=== PATIENT | male | born 1980 | race Caucasian/White ===

== ENCOUNTER 2022-11-04 08:53 | Outpatient (CLI) | payer OTHER, SELFPAY ==
[2022-11-04 10:09] LABS: Hematocrit 44.5 % (42.0-52.0); Mean Corpuscular HGB Conc 33.7 g/dl (32-36); Mean Corpuscular Hemoglobin 31.6 pg (26-34); Mean Corpuscular Volume 93.9 fl (80-100); Platelet Count Result 323 k/mm3 (150-375); Red Blood Count 4.74 M/mm3 (4.6-6.20); Red Cell Distribution Width 12.3 % (11.5-14.5); White Blood Count 4.7 K/mm3 (4.5-10.0)
[2022-11-04 10:10] LABS: Appearance Urine Clear (Clear); Bilirubin Urine Negative (Negative); Blood Urine Negative (Negative); Color Urine Yellow (Yellow); Glucose Urine UA Negative (Negative); Ketones Urine Negative (Negative); Leukocyte Esterase Ur Negative LEU/UL (Negative); Nitrate Urine Negative (Negative); Protein Urine Negative (Negative); Specific Grav Ur 1.021 (1.001-1.035)
[2022-11-04 10:14] LABS: Add Urine Microscopic? NO
[2022-11-04 10:17] LABS: Partial Thromboplastin Time 30.4 SECONDS (22.3-36.8); Prothrombin Time 13.8 Seconds (11.1-14.7)
[2022-11-04 10:19] LABS: Anion Gap 6 mmol/L (8-16); Blood Urea Nitrogen 8 mg/dL (9-20); Calcium 8.5 mg/dL (8.4-10.2); Carbon Dioxide 30 mmol/L (22-30); Chloride 103 mmol/L (98-107); Estimated Glomerular Filt Rate > 60; Glucose 93 mg/dL (65-110); Sodium 139 mmol/L (137-145)
--- NOTE | 2022-11-04 10:30 | ECG_ITS ---
Measurements Intervals [place] Rate: 63 P: 20 [place]: 130 QRS: 4 QRSD: 128 T: 1 QT: 408 QTc: 419 Interpretive Statements SINUS RHYTHM INTRAVENTRICULAR CONDUCTION DELAY BASELINE ARTIFACT- I, II, AVR, AVL, AVF BORDERLINE ECG NO PREVIOUS ECG AVAILABLE FOR COMPARISON Electronically Signed On 11-04-2022 12:26:26 CDT by David Bañuelos D.O.
== END 2022-11-04 08:54 | disposition home or self-care (01) ==
LOC: ANHSURGERY 08:57
PROVIDERS: Visit Provider Neurological Surgery
DX: Z45.42 Encounter for adjustment and management of neurostimulator (principal)
CPT/HCPCS: 36415; 80048; 81003; 85027; 85610; 85730; 93005

== ENCOUNTER 2023-04-19 02:42 | Day surgery (SDC) | payer OTHER, SELFPAY ==
[2023-04-12 11:37] VITALS: BMI 28.2
--- NOTE | 2023-04-12 11:38 | PC.NURSE ---
Report to the Outpatient Waiting Room, entrance under the green pavilion located off [facility], at time 11:00 on date 04/19/23. Planned Procedure Time: 1:00. Time changes happen often and if your time is changed the preop area will call you the afternoon before. - You and your visitor will be asked to self-screen and do not enter if you have any COVID symptoms. - A mask is optional within the hospital at this time. Patients may have clear liquids (water, carbonated beverages, clear teas, apple juice) until 3 hours prior to surgery (10:00) with a maximum of 20 ounces. - No food from midnight until time of surgery Take the following medications with a SIP of water the morning of surgery: N/A DO NOT STOP ANY OF YOUR OTHER PRESCRIPTION MEDICATIONS PRIOR TO SURGERY ?EXCEPT THE FOLLOWING Medications to discontinue per physician: N/A Date to take last dose: N/A Please no make-up, nail sammarinese, hairspray, perfume, deodorant, or body powder the day of surgery. No jewelry (including any body piercings) or valuables the day of surgery, leave them at home. Please take a shower or bath the night before, or the morning of, surgery with an antibacterial soap. Wear comfortable, loose fitting clothing. - Jewelry must be removed prior to entering the operating room. Rings and piercings that are not removed may be cut off. - The hospital will not accept responsibility for valuables. - Please leave all valuables, including medications, at home the day of surgery. If you are going home after surgery, a licensed corporate driver must drive you home. - NO public transportation without another adult if you receive anesthesia. - We recommend that an adult stay with you for 24 hours following discharge. - We also recommend that you do not drive, make important decision, drink alcoholic beverages, or take any drugs that were not prescribed by your health care provider for at least 24 hours after your discharge time. Follow any additional instructions given to you from your surgeon. If you or anyone in your household have experienced Covid symptoms in the past week, please notify your surgeon or the nurse liaison at the phone number below for possible testing. Telephone instructions given to PT - ABILIO BECK and asked if any additional questions and then verbalized understanding. Patient advised to call surgeon office or pre surgery nurse liaison [phone] if any additional questions.
[2023-04-19 09:05] LABS: Hemoglobin 15.1 g/dL (14.0-18.0)
[2023-04-19 09:19] VITALS: BP 128/83; PULSE 66; RESP 14; TEMP 36.6; O2SAT 100
[2023-04-19] MEDS: LACTATED RINGERS 1,000 ML 30 ML IV CONT (10:00)
--- NOTE | 2023-04-19 10:11 | WPDANESEPPF ---
Anes - Initial Pre Proc Eval Procedure: Operation Date: 04/19/23 10:00 Proposed Procedures p Replacement of Left Anterior Chest Supraorbital Stimulator Generator - Audra Tinajero MD Date/Time: 04/19/23 10:11 Surgeon: Audra Tinajero MD Pre Op Diagnosis: eoi, supraorbital nerve stimulator Patient Data Age: 42 Gender: M Height: 1.88 m Weight: 96.8 kg Last Vital Signs Temp 36.6 C 04/19/23 09:19 Pulse 66 04/19/23 09:19 Resp 14 04/19/23 09:19 BP 128/83 04/19/23 09:19 Pulse Ox 100 04/19/23 09:19 O2 Del Method Room Air 04/19/23 09:19 Allergies Allergy/AdvReac Type Severity Reaction Status Date / Time No Known Allergies Allergy Verified 04/19/23 09:24 Home Medications Medication Instructions Recorded Confirmed Type No Home Medications 09/29/22 04/12/23 History Laboratory Tests 04/19/23 08:52 Hgb 15.1 g/dL (14.0-18.0) Hct 46.0 % (42.0-52.0) Patient hx anesthesia problems: none Family hx anesthesia problems: none Results Review: All pre-operative results and documents have been reviewed as part of the pre-operative evaluation. [facility] Social History Social History Smoking status: Never smoker Alcohol intake: current Drinks per week: 3 Substance use: never Substance use type: does not use Living arrangements: with family Spiritual care concerns: No Anes - Eval Final PreProcedure Day of Procedure 04/19/23 10:11 Patient weight: overweight Heart: regular rate and rhythm Lungs: clear to auscultation Airway: Mallampati scale class 1 Neurological: alert and oriented Last oral intake: >/= 8 hours ASA classification: II Emergent: no Anesthetic plan: proceed Anesthesia type and monitoring: general GIVS and standard monitoring Results Review: All pre-operative results and documents have been reviewed as part of the pre-operative evaluation. Informed Consent: The patient's anesthetic plan and its attendant risks and benefits were discussed with the patient/family/POA. Questions were solicited and answers provided to the satisfaction of the patient/family/POA.
--- NOTE | 2023-04-19 12:35 | P.HP_ITS ---
H&P: HPI History of Present Illness Date/Time: 04/19/23 12:35 Chief Complaint: battery end of life Narrative: Mr. 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 In 2011, the patient sustained a work related injury in which the flag of a fire hydrant hit him above the left eye resulting in significant pain and paresthesias in the region as well as migraines.? He had a number of treatments for this at [facility] including a supraorbital nerve block and at least two cryoneurolysis procedures followed by a nerve stimulator placement with the battery in the left anterior chest.? This has worked very well in terms of controlling his migraines and supraorbital region pain; however, he feels like the stimulator is not working as well as it should be and that the batteries most likely feeling.? According to the [employer] rep, it does appear that the battery is ready for replacement. [facility] Social History Social History Smoking status: Never smoker Alcohol intake: current Drinks per week: 3 Substance use: never Substance use type: does not use Living arrangements: with family Spiritual care concerns: No Meds Home Medications and Allergies Home Medications Medication Instructions Recorded Confirmed Type No Home Medications 09/29/22 04/12/23 History Allergies Allergy/AdvReac Type Severity Reaction Status Date / Time No Known Allergies Allergy Verified 04/19/23 09:24 Vital Signs Vital Signs - 24 hr 04/19/23 09:19 Temperature 98 F Pulse Rate 66 Respiratory Rate 14 Blood Pressure 128/83 Pulse Oximetry 100 Oxygen Delivery Room Air Exam Narrative: Left anterior chest incision is well healed Unless otherwise stated above, the patient's physical exam is as follows: General: -Well developed and well nourished. No a cute distress. Cooperative with exam. Mental status: -Awake and oriented to person, place, an d time. Integumentary: -No obvious skin lesions or masses Motor: -Muscle tone normal without spasticity o f flaccidity. No atrophy. No fasciculations. -No pronator drift -Right upper extremity: deltoid 5/5, bic eps 5/5, triceps 5/5, wrist extensors 5/5, wrist flexors 5/5, intrinsics 5/5 -Left upper extremity: deltoid 5/5, lucinda ps 5/5, triceps 5/5, wrist extensors 5/5, wrist flexors 5/5, intrinsics 5/5 -Right lower extremity: iliopsoas 5/5, q uadriceps 5/5, hamstrings 5/5, tibialis anterior 5/5, gastroc-soleus 5/5, EHL 5/5 -Left lower extremity: iliopsoas 5/5, qu adriceps 5/5, hamstrings 5/5, tibialis anterior 5/5, gastroc-soleus 5/5, EHL 5/5 Sensory: -Intact to light touch throughout -Normal proprioception throughout Reflexes: -1-2+
--- NOTE | 2023-04-19 12:35 | PM.IMHP ---
H&P: HPI History of Present Illness Date/Time: 04/19/23 12:35 Chief Complaint: battery end of life Narrative: Mr. 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 In 2011, the patient sustained a work related injury in which the flag of a fire hydrant hit him above the left eye resulting in significant pain and paresthesias in the region as well as migraines.? He had a number of treatments for this at [facility] including a supraorbital nerve block and at least two cryoneurolysis procedures followed by a nerve stimulator placement with the battery in the left anterior chest.? This has worked very well in terms of controlling his migraines and supraorbital region pain; however, he feels like the stimulator is not working as well as it should be and that the batteries most likely feeling.? According to the [employer] rep, it does appear that the battery is ready for replacement. [facility] Social History Social History Smoking status: Never smoker Alcohol intake: current Drinks per week: 3 Substance use: never Substance use type: does not use Living arrangements: with family Spiritual care concerns: No Meds Home Medications and Allergies Home Medications Medication Instructions Recorded Confirmed Type No Home Medications 09/29/22 04/12/23 History Allergies Allergy/AdvReac Type Severity Reaction Status Date / Time No Known Allergies Allergy Verified 04/19/23 09:24 Vital Signs Vital Signs - 24 hr 04/19/23 09:19 Temperature 98 F Pulse Rate 66 Respiratory Rate 14 Blood Pressure 128/83 Pulse Oximetry 100 Oxygen Delivery Room Air Exam Narrative: Left anterior chest incision is well healed Unless otherwise stated above, the patient's physical exam is as follows: General: -Well developed and well nourished. No acute distress. Cooperative with exam. Mental status: -Awake and oriented to person, place, and time. Integumentary: -No obvious skin lesions or masses Motor: -Muscle tone normal without spasticity of flaccidity. No atrophy. No fasciculations. -No pronator drift -Right upper extremity: deltoid 5/5, biceps 5/5, triceps 5/5, wrist extensors 5/5, wrist flexors 5/5, intrinsics 5/5 -Left upper extremity: deltoid 5/5, biceps 5/5, triceps 5/5, wrist extensors 5/5, wrist flexors 5/5, intrinsics 5/5 -Right lower extremity: iliopsoas 5/5, quadriceps 5/5, hamstrings 5/5, tibialis anterior 5/5, gastroc-soleus 5/5, EHL 5/5 -Left lower extremity: iliopsoas 5/5, quadriceps 5/5, hamstrings 5/5, tibialis anterior 5/5, gastroc-soleus 5/5, EHL 5/5 Sensory: -Intact to light touch throughout -Normal proprioception throughout Reflexes: -1-2+ DTR's throughout -No Alvarado's, clonus, or Babinski bilaterally H&P: Results Labs Labs: Short CBC 04/19/23 Range/Units 08:52 Hgb 15.1 (14.0-18.0) g/dL Hct 46.0 (42.0-52.0) % Assessment and Plan Assessment and plan (1) Battery end of life of vagus nerve stimulator: Code(s): Z45.42 - Encounter for adjustment and management of neurostimulator Status: Acute Plan Mr. Giordano? is a 42-year-old male with history of left supraorbital neuralgia status post stimulator placement in 2013 at [facility] who presents with battery end of life.? He has a left anterior chest battery with leads running into the left supraorbital region.? According to the [employer] rep, interrogation shows that the battery is ready for replacement.? I explained to him that I am not very familiar with this specific type of stimulator, and while I am happy to replace the battery, I would not be comfortable revising the stimulator in any way.? If this were necessary, I would likely refer him to [facility] for evaluation of this.? The patient expressed understandi
--- NOTE | 2023-04-19 12:36 | WPDHPUPDATE1 ---
History and Physical Update Update Date/Time: 04/19/23 12:36 History and Physical has been reviewed, including an updated exam of the patient. There are NO changes in the patient's condition. Risks, benefits, and alternatives have been discussed and questions answered. Patient agrees to proceed with procedure.
[2023-04-19] MEDS: ceFAZolin 2 GM/D5W 50 ML 2 GM/50 ML BAG IVPB (12:47)
[2023-04-19] MEDS: BUPIVACAINE/EPINEPHRINE 0.5% 50 ML VIAL 20 ML INFILTRATE (13:16)
[2023-04-19] MEDS: VANCOMYCIN HCL 1,000 MG VIAL 500 MG TOPICAL (13:19)
[2023-04-19 13:32] VITALS: BP 108/75; PULSE 58; RESP 13; TEMP 36.6; O2SAT 100
--- NOTE | 2023-04-19 13:34 | PM.OP ---
Procedure Note - Brief Procedure Note - Brief Date of procedure: 04/19/23 battery end of life of supraorbital nerve stimulator Post-op diagnosis: Same Procedure performed: Replacement of left anterior chest generator Surgeon: Audra Tinajero MD Anesthesia: GETA Description of procedure: Successful replacement with low impedances on interrogation Estimated blood loss (mL): 5 Drains: No Packing: No Pathology: None sent Complications: None Condition: Stable Disposition: PACU
[2023-04-19 13:45] VITALS: BP 123/78; PULSE 67; RESP 20; O2SAT 100
--- NOTE | 2023-04-19 13:45 | W.PM.PROC2 ---
Procedure Note - Detailed Date of Procedure 04/19/23 Pre-op Diagnosis Battery end of life of supraorbital nerve stimulator Post-op Diagnosis Same Procedure Performed Replacement of left anterior chest stimulator generator Surgeon Audra Tinajero MD Anesthesia General Description of Procedure The patient was brought to the OR and was transferred supine to the OR table. General anesthesia was induced. The previous incisions was marked. The patient was prepped and draped in usual sterile fashion. Time out was conducted. Local anesthesia was injected into the planned incision. The left chest incision was opened with a 15-blade. The soft tissue was dissected with the bovie to expose the battery. A thin capsule surrounding the battery was dissected and opened with the Metzenbaum scissors until the battery was able to be removed from the pocket. The stimulator leads were removed and placed into the new battery. The device was interrogated and was found to be functioning well with low impedances. The pocket was irrigated copiously. The generator was secured with a 2-0 silk suture. Stimulan beads were mixed with antibiotic and placed into the pocket around the generator. The dermis was closed with 2-0. The skin was closed with 4-0 monocryl. Skin glue followed by gauze and tegaderm were placed over the incision. The patient was returned to the supine position, extubated, and transferred to PACU without incident. Codes:[id number] Estimated Blood Loss -5.0 Drains No Packing No Pathology None sent Complications None Condition Stable Disposition PACU [facility] Billing Surgery - Charge Forward: Surgery Billing
[2023-04-19 13:58] VITALS: BP 122/77; PULSE 65; RESP 20; O2SAT 100
[2023-04-19 14:01] VITALS: BP 120/82; PULSE 60; RESP 18
[2023-04-19 14:30] VITALS: BP 132/83; PULSE 72; RESP 18
== END 2023-04-19 14:45 | disposition home or self-care (01) ==
PROVIDERS: Anesthesiology; Visit Provider Neurological Surgery
PROC: (CPT 61886; principal; 2023-04-19 10:00)
DX: Z45.42 Encounter for adjustment and management of neurostimulator (principal); G58.8 Other specified mononeuropathies; Z87.828 Personal history of other (healed) physical injury and trauma
CPT/HCPCS: 61886; 36415; 85014; 85018; J0690; J2250; J3010; J3370; J7120